=== PATIENT | female | born 1985 ===

== ENCOUNTER 2017-05-18 11:25 | Emergency (ER) | payer OTHER ==
[2017-05-18 11:25] VITALS: BMI 20.1
[2017-05-18 11:39] VITALS: RESP 18
--- NOTE | 2017-05-18 13:08 | RAD ---
PROCEDURE: Radiographs of the Lumbar Spine. HISTORY: pain COMPARISON: No prior. FINDINGS: BONES: Normal alignment. No listhesis. No fracture. DISC SPACES: Minimal posterior L4-5 and L3-4 disc space narrowing OTHER FINDINGS: None. IMPRESSION: No fracture or subluxation. Minimal posterior L4-5 and L3-4 disc space narrowing
--- NOTE | 2017-05-18 13:10 | C.PDOC ---
History Of Present Illness 31 y/o female presents to ED with complaints of lower back pain for 4 days. Patient states on Wednesday she tripped and fell on her back on the stairs. Pain is worsen with movement. Denies loc, head trauma, urinary or bowel incontinence , symptoms, change in sensation, or any other complaints at this time. Time Seen by Provider: 05/18/17 12:05 Chief Complaint (Nursing): Back Pain History Per: Patient History/Exam Limitations: no limitations Onset/Duration Of Symptoms: Days Current Symptoms Are (Timing): Still Present Quality Of Discomfort: "Pain" Past Medical History Reviewed: Historical Data, Nursing Documentation, Vital Signs Vital Signs: Last Vital Signs Temp 98.3 F 05/18/17 13:36 Pulse 56 L 05/18/17 13:44 Resp 18 05/18/17 13:44 BP 119/62 05/18/17 13:36 Pulse Ox 98 05/18/17 14:39 - Medical History PMH: Anemia, Anxiety, Bipolar Disorder, Depression Surgical History: Appendectomy (2010) Family History: States: No Known Family Hx - Social History Hx Alcohol Use: Yes Hx Substance Use: Yes (marijuana) - Immunization History Hx Tetanus Toxoid Vaccination: No Hx Influenza Vaccination: No Hx Pneumococcal Vaccination: No Review Of Systems Except As Marked, All Systems Reviewed And Found Negative. Gastrointestinal: Negative for: Nausea, Vomiting, Abdominal Pain Genitourinary: Negative for: Dysuria, Frequency, Hematuria Musculoskeletal: Positive for: Back Pain. Negative for: Neck Pain Skin: Negative for: Rash Physical Exam - Physical Exam Appears: Well, Non-toxic, No Acute Distress (standing without evidence of distress) Skin: Normal Color, Warm, Dry, No Rash Head: Atraumatic, Normacephalic Eye(s): bilateral: Normal Inspection, EOMI Nose: Normal Oral Mucosa: Moist Neck: Normal ROM, Supple Chest: Symmetrical Cardiovascular: Rhythm Regular, No Murmur Respiratory: Normal Breath Sounds, No Rales, No Rhonchi, No Wheezing Gastrointestinal/Abdominal: Soft, No Tenderness, No Guarding, No Rebound Back: No CVA Tenderness, No Paraspinal Tenderness, Other (Tenderness to sacral area, no ecchymosis ) Extremity: Normal ROM Neurological/Psych: Oriented x3, Normal Motor, Normal Sensation ((-) saddle anesthsia) Gait: Steady ED Course And Treatment O2 Sat by Pulse Oximetry: 98 (RA) Pulse Ox Interpretation: Normal - Other Rad L/s XR X-Ray: Interpreted by Me, Viewed By Me Interpretation: No fx or dislocation Progress Note: Pt treated with Toradol IM. On reassessment, patient is resting comfortably, with improvement of back pain. Patient remains afebrile, with no bony tenderness, extremity numbness or weakness, or abdominal pain. Patient is ambulatory in the emergency department with no signs of discomfort. Patient was advised to follow up with physician/clinic in 1-2 days. Disposition - Disposition Disposition: HOME/ ROUTINE Disposition Time: 13:09 Condition: STABLE Additional Instructions: Follow up with primary medical doctor in 1-3 days without fail for further evaluation. Take medications as prescribed. Return to the emergency department at any time if symptoms persist or worsen. 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 - Scribe Statement The provider has reviewed the documentation as recorded by the Zaydaibjabier Valdez All medical record entries made by the Yuli were at my direction and personally dictated by me. I have reviewed the chart and agree that the record accurately reflects my personal performance of the history, physical exam, medical decision making, and the department course for this patient. I have also personally directed, reviewed, and agree with the discharge instructions and disposition.
[2017-05-18 13:37] VITALS: BP 119/62; TEMP 98.3
[2017-05-18 13:45] VITALS: PULSE 56; O2SAT 98
== END 2017-05-18 13:45 | disposition home or self-care (01) ==
LOC: C.ER 11:25
DX: S30.0XXA Contusion of lower back and pelvis, initial encounter (principal); W10.8XXA Fall (on) (from) other stairs and steps, initial encounter; Y93.89 Activity, other specified; Y92.89 Other specified places as the place of occurrence of the external cause
CPT/HCPCS: 72100; 96372; 99283; J1885